=== PATIENT | male | born 1955 | race Caucasian/White ===

== ENCOUNTER 2018-03-20 12:50 | Outpatient (CLI) | payer OTHER ==
[~2018-03-20 12:50] MED LIST: ASPI-611 PO; MULT-342 PO
== END 2018-03-20 23:59 | disposition home or self-care (01) ==
LOC: RAD 12:50
PROVIDERS: ATTEND Family Medicine
DX: M25.474 Effusion, right foot (principal); Z87.891 Personal history of nicotine dependence
CPT/HCPCS: 73660

== ENCOUNTER → 2018-04-13 | Outpatient (CLI) | payer OTHER ==
[2018-04-13 07:58] LABS: CLARITY,URINE CLEAR (Clear); COLOR,URINE YELLOW (Yellow); GLUCOSE, URINE NEGATIVE (Neg); KETONES,URINE NEGATIVE (Neg); LEUKOCYTE ESTERASE ,URINE NEGATIVE (Neg); NITRITES, URINE NEGATIVE (Neg); OCCULT BLOOD,URINE NEGATIVE (Neg); PH,URINE 6.5 (4.8-8.0); PROTEIN,URINE NEGATIVE (Neg); UROBILINOGEN,URINE 0.2 E.U/dL (0.2-1.0)
[2018-04-13 08:07] LABS: BASOPHILS % (AUTO) 0.6 % (0-1); EOSINOPHILS # (AUTO) 0.2 X10'3 (0-0.9); EOSINOPHILS % (AUTO) 3.7 % (0-6); HEMATOCRIT 44.2 % (42.0-52.0); HEMOGLOBIN 15.3 g/dl (14.0-17.9); LYMPHOCYTES # (AUTO) 1.3 X10'3 (1.1-4.8); LYMPHOCYTES % (AUTO) 27.5 % (21-51); MEAN CORPUSCULAR HEMOGLOBIN 32.2 PG (27.0-31.0); MEAN CORPUSCULAR HGB CONC 34.6 % (33.0-36.5); MEAN PLATELET VOLUME 7.2 FL (7.4-10.4); MONOCYTES # (AUTO) 0.5 X10'3 (0-0.9); MONOCYTES % (AUTO) 10.5 % (2-12); NEUTROPHILS # (AUTO) 2.7 X10'3 (1.8-7.7); NEUTROPHILS % (AUTO) 57.7 % (42-75); PLATELET COUNT 180 X10'3 (140-440); RED BLOOD COUNT 4.75 X10'6 (4.70-6.10); RED CELL DISTRIBUTION WIDTH 12.7 % (11.5-14.5); WHITE BLOOD COUNT 4.8 X10'3 (4.5-11.0)
[2018-04-13 08:11] LABS: UA COLLECTION TYPE VOIDED
[2018-04-13 08:19] LABS: ALANINE AMINOTRANSFERASE 32 U/L (12-78); ALBUMIN 4.2 G/DL (3.4-5.0); ALBUMIN/GLOBULIN RATIO 1.4 (1.1-1.5); ALKALINE PHOSPHATASE 58 IU/L (46-116); ANION GAP 6 (8-16); ASPARTATE AMINO TRANSFERASE 29 U/L (10-37); BILIRUBIN,TOTAL 0.5 MG/DL (0.1-1.0); BLOOD UREA NITROGEN 17 MG/DL (7-18); BUN/CREATININE RATIO 20.7 (5.4-32.0); CALCIUM 8.8 MG/DL (8.5-10.1); CHLORIDE 105 MMOL/L (99-107); CHOLESTEROL 158 MG/DL (0-200); CREATININE 0.82 MG/DL (0.60-1.10); GLUCOSE 113 MG/DL (70-104); HDL CHOLESTEROL 52 MG/DL (35-60); LDL CHOLESTEROL 97 MG/DL (50-100); POTASSIUM 4.5 MMOL/L (3.5-5.1); SODIUM 142 MMOL/L (135-145); TOTAL CARBON DIOXIDE 30.8 MMOL/L (24-32); TOTAL PROTEIN 7.3 G/DL (6.4-8.2); TRIGLYCERIDES 66 MG/DL (20-135); eGFR > 90 ML/MIN
== END | disposition home or self-care (01) ==
LOC: LAB 07:32
PROVIDERS: ATTEND Family Medicine
DX: Z00.01 Encounter for general adult medical examination with abnormal findings (principal); Z87.891 Personal history of nicotine dependence
CPT/HCPCS: 36415; 80053; 80061; 81003; 84402; 84403; 84439; 84443; 85025

== ENCOUNTER 2018-07-18 10:45 | Outpatient (CLI) | payer OTHER | END 2018-07-18 23:59 | disposition home or self-care (01) | LOC: RAD 10:45 | PROVIDERS: ATTEND Podiatrist Foot & Ankle Surgery | DX: M25.474 Effusion, right foot (principal); M79.671 Pain in right foot; Z87.891 Personal history of nicotine dependence | CPT/HCPCS: 73718 ==

== ENCOUNTER 2018-12-20 15:31 | Emergency (ER) | payer OTHER, MEDICARE ==
[~2018-12-20] VITALS: Ht 180.3 cm; Wt 106.4 kg
[2018-12-20 15:51] VITALS: BP 155/92
[2018-12-20] MEDS ORDERED: LIDOcaine 1% w/epiNEPHrine 1:200,000 30ml vial IM ONE (16:15)
--- NOTE | 2018-12-20 16:56 | NUR ---
PT SEEN AND DC'D BY PROVIDER
== END 2018-12-20 16:57 | disposition home or self-care (01) ==
LOC: ER 15:32
DX: S01.511A Laceration without foreign body of lip, initial encounter (principal); W22.8XXA Striking against or struck by other objects, initial encounter; Y93.89 Activity, other specified; Y92.89 Other specified places as the place of occurrence of the external cause; Y99.8 Other external cause status
CPT/HCPCS: 12011; 96372; 99283

== ENCOUNTER 2019-04-18 08:27 | Outpatient (CLI) | payer OTHER, MEDICARE ==
[2019-04-18 09:26] LABS: BASOPHILS % (AUTO) 0.9 % (0-1); EOSINOPHILS # (AUTO) 0.1 X10'3 (0-0.9); HEMATOCRIT 42.7 % (42.0-52.0); HEMOGLOBIN 14.7 g/dl (14.0-17.9); LYMPHOCYTES # (AUTO) 1.4 X10'3 (1.1-4.8); LYMPHOCYTES % (AUTO) 34.2 % (21-51); MEAN CORPUSCULAR HEMOGLOBIN 31.8 PG (27.0-31.0); MEAN CORPUSCULAR HGB CONC 34.4 g/dL (33.0-36.5); MEAN CORPUSCULAR VOLUME 92.5 FL (78-98); MEAN PLATELET VOLUME 7.4 FL (7.4-10.4); MONOCYTES # (AUTO) 0.5 X10'3 (0-0.9); MONOCYTES % (AUTO) 11.2 % (2-12); NEUTROPHILS # (AUTO) 2.1 X10'3 (1.8-7.7); NEUTROPHILS % (AUTO) 51.7 % (42-75); PLATELET COUNT 175 X10'3 (140-440); RED BLOOD COUNT 4.62 X10'6 (4.70-6.10); RED CELL DISTRIBUTION WIDTH 12.5 % (11.5-14.5)
[2019-04-18 09:29] LABS: HEMOGLOBIN A1C 5.4 % (4.5-6.2)
[2019-04-18 09:47] LABS: ALANINE AMINOTRANSFERASE 29 U/L (12-78); ALBUMIN 4.1 G/DL (3.4-5.0); ALBUMIN/GLOBULIN RATIO 1.4 (1.1-1.5); ALKALINE PHOSPHATASE 47 IU/L (46-116); ANION GAP 7 (8-16); ASPARTATE AMINO TRANSFERASE 21 U/L (10-37); BILIRUBIN,TOTAL 0.8 MG/DL (0.1-1.0); BLOOD UREA NITROGEN 20 MG/DL (7-18); BUN/CREATININE RATIO 27.4 (5.4-32.0); CHLORIDE 105 MMOL/L (99-107); CHOL/HDL RATIO 3.7 (0.00-4.99); CHOLESTEROL 151 MG/DL (0-200); CREATININE 0.73 MG/DL (0.60-1.10); GLUCOSE 100 MG/DL (70-104); HDL CHOLESTEROL 41 MG/DL (35-60); LDL CHOLESTEROL 103 MG/DL (50-100); SODIUM 137 MMOL/L (135-145); TOTAL CARBON DIOXIDE 24.7 MMOL/L (24-32); TOTAL PROTEIN 7.1 G/DL (6.4-8.2); TRIGLYCERIDES 66 MG/DL (20-135); eGFR > 90 ML/MIN
[2019-04-19 09:29] LABS: MICROALB/CRT, RATIO 4.5 mg/g creat (0.0-30.0)
[2019-04-19 13:19] LABS: PSA, ULTRASENSITIVE W/O SERIAL 0.713 ng/mL (0.000-4.000)
== END 2019-04-18 23:59 | disposition home or self-care (01) ==
LOC: LAB 08:27
DX: Z00.00 Encounter for general adult medical examination without abnormal findings (principal); Z87.891 Personal history of nicotine dependence
CPT/HCPCS: 36415; 80053; 80061; 82043; 82570; 83036; 84153; 84439; 84443; 85025

== ENCOUNTER 2020-12-24 07:58 | Outpatient (CLI) | payer BC, MEDICARE ==
[2020-12-24 09:26] LABS: BASOPHILS % (AUTO) 0.9 % (0-1); EOSINOPHILS # (AUTO) 0.2 X10'3 (0-0.9); HEMATOCRIT 43.8 % (42.0-52.0); HEMOGLOBIN 15.1 g/dl (14.0-17.9); LYMPHOCYTES # (AUTO) 1.2 X10'3 (1.1-4.8); LYMPHOCYTES % (AUTO) 23.6 % (21-51); MEAN CORPUSCULAR HEMOGLOBIN 32.4 PG (27.0-31.0); MEAN CORPUSCULAR HGB CONC 34.5 g/dL (33.0-36.5); MEAN CORPUSCULAR VOLUME 93.9 FL (78-98); MEAN PLATELET VOLUME 7.6 FL (7.4-10.4); MONOCYTES # (AUTO) 0.5 X10'3 (0-0.9); MONOCYTES % (AUTO) 10.5 % (2-12); NEUTROPHILS # (AUTO) 3.2 X10'3 (1.8-7.7); PLATELET COUNT 179 X10'3 (140-440); RED BLOOD COUNT 4.67 X10'6 (4.70-6.10); RED CELL DISTRIBUTION WIDTH 13.2 % (11.5-14.5); WHITE BLOOD COUNT 5.2 X10'3 (4.5-11.0)
[2020-12-24 09:29] LABS: CLARITY,URINE CLEAR (Clear); COLOR,URINE YELLOW (Yellow); GLUCOSE, URINE NEGATIVE (Neg); KETONES,URINE NEGATIVE (Neg); LEUKOCYTE ESTERASE ,URINE NEGATIVE (Neg); NITRITES, URINE NEGATIVE (Neg); OCCULT BLOOD,URINE NEGATIVE (Neg); PROTEIN,URINE NEGATIVE (Neg); UROBILINOGEN,URINE 0.2 E.U/dL (0.2-1.0)
[2020-12-24 09:36] LABS: UA COLLECTION TYPE CLN CATCH MIDSTREAM
[2020-12-24 09:39] LABS: ALANINE AMINOTRANSFERASE 46 U/L (12-78); ALBUMIN 4.1 G/DL (3.4-5.0); ALBUMIN/GLOBULIN RATIO 1.4 (1.1-1.5); ALKALINE PHOSPHATASE 65 IU/L (46-116); ANION GAP 12 (8-16); ASPARTATE AMINO TRANSFERASE 34 U/L (10-37); BILIRUBIN,TOTAL 0.3 MG/DL (0.1-1.0); BLOOD UREA NITROGEN 17 MG/DL (7-18); BUN/CREATININE RATIO 23.9 (5.4-32.0); CALCIUM 8.9 MG/DL (8.5-10.1); CHLORIDE 107 MMOL/L (99-107); CHOL/HDL RATIO 3.6 (0.00-4.99); CHOLESTEROL 167 MG/DL (0-200); CREATININE 0.71 MG/DL (0.60-1.10); GLUCOSE 110 MG/DL (70-104); HDL CHOLESTEROL 46 MG/DL (35-60); LDL CHOLESTEROL 106 MG/DL (50-100); POTASSIUM 4.2 MMOL/L (3.5-5.1); SODIUM 145 MMOL/L (135-145); TOTAL CARBON DIOXIDE 26.1 MMOL/L (24-32); TOTAL PROTEIN 7.1 G/DL (6.4-8.2); TRIGLYCERIDES 74 MG/DL (20-135); eGFR > 90 ML/MIN
[2020-12-24 09:51] LABS: HEMOGLOBIN A1C 5.8 % (4.5-6.2)
== END 2020-12-24 23:59 | disposition home or self-care (01) ==
LOC: 64 CT 07:58
PROVIDERS: ATTEND Family Medicine
DX: I25.10 Atherosclerotic heart disease of native coronary artery without angina pectoris (principal); J43.9 Emphysema, unspecified; R91.1 Solitary pulmonary nodule; Z00.00 Encounter for general adult medical examination without abnormal findings; Z87.891 Personal history of nicotine dependence
CPT/HCPCS: 36415; 71250; 80053; 80061; 81003; 83036; 84153; 85025

== ENCOUNTER 2021-03-04 08:22 | Day surgery (SDC) | payer BC, MEDICARE ==
[~2021-03-04] VITALS: Ht 180.3 cm; Wt 101.8 kg
[2021-03-04 08:35] VITALS: BP 174/98
[2021-03-04] MEDS ORDERED: MIDAZolam 1 MG/ML 5ML VIAL ONE (09:01)
[2021-03-04] MEDS ORDERED: fentaNYL/PF 50MCG/1 ML 2ML syringe ONE (09:01)
[2021-03-04 10:06] VITALS: BP 147/70
[2021-03-04 10:16] VITALS: BP 143/76
[2021-03-04 10:26] VITALS: BP 143/89
== END 2021-03-04 10:37 | disposition home or self-care (01) ==
LOC: GI LAB 08:22
PROVIDERS: ATTEND Internal Medicine Gastroenterology
DX: Z12.11 Encounter for screening for malignant neoplasm of colon (principal); K62.1 Rectal polyp; K57.30 Diverticulosis of large intestine without perforation or abscess without bleeding; K64.0 First degree hemorrhoids; Z87.891 Personal history of nicotine dependence; Z79.899 Other long term (current) drug therapy; Z80.0 Family history of malignant neoplasm of digestive organs
CPT/HCPCS: 45380; 99152; J2250; J3010; J7040; 45385; 99153; A4620

== ENCOUNTER 2021-04-03 12:27 | Outpatient (CLI) | payer BC, MEDICARE ==
[~2021-04-03 12:27] MED LIST changes: -ASPI-611 PO
== END 2021-04-03 23:59 | disposition home or self-care (01) ==
LOC: CARD DIAG 12:27
PROVIDERS: ATTEND Internal Medicine Interventional Cardiology
DX: R06.02 Shortness of breath (principal)
CPT/HCPCS: 93306

== ENCOUNTER 2021-04-06 08:21 | Outpatient (CLI) | payer BC, MEDICARE ==
[2021-04-03 14:12] LABS: ALANINE AMINOTRANSFERASE 35 U/L (12-78); ALBUMIN 4.2 G/DL (3.4-5.0); ALBUMIN/GLOBULIN RATIO 1.5 (1.1-1.5); ALKALINE PHOSPHATASE 53 IU/L (46-116); ANION GAP 9 (8-16); ASPARTATE AMINO TRANSFERASE 24 U/L (10-37); BILIRUBIN,TOTAL 0.6 MG/DL (0.1-1.0); BLOOD UREA NITROGEN 19 MG/DL (7-18); BUN/CREATININE RATIO 25.3 (5.4-32.0); CHLORIDE 106 MMOL/L (99-107); CREATININE 0.75 MG/DL (0.60-1.10); GLUCOSE 89 MG/DL (70-104); POTASSIUM 3.7 MMOL/L (3.5-5.1); SODIUM 142 MMOL/L (135-145); TOTAL CARBON DIOXIDE 27.4 MMOL/L (24-32); eGFR > 90 ML/MIN
[2021-04-06] MEDS ORDERED: iohexol 300mg/ml 100ml inj. ONE (08:45)
== END 2021-04-06 23:59 | disposition home or self-care (01) ==
LOC: 64 CT 08:21
PROVIDERS: ATTEND Family Medicine
DX: K42.9 Umbilical hernia without obstruction or gangrene (principal); N20.0 Calculus of kidney; K76.89 Other specified diseases of liver; I70.0 Atherosclerosis of aorta; N28.1 Cyst of kidney, acquired
CPT/HCPCS: 36415; 74170; 80053; Q9967

== ENCOUNTER 2021-04-28 09:21 | Outpatient (CLI) | payer BC, MEDICARE ==
[2021-04-28 10:26] LABS: BASOPHILS % (AUTO) 0.6 % (0-1); EOSINOPHILS # (AUTO) 0.1 X10'3 (0-0.9); EOSINOPHILS % (AUTO) 1.9 % (0-6); HEMATOCRIT 43.9 % (42.0-52.0); HEMOGLOBIN 15.2 g/dl (14.0-17.9); LYMPHOCYTES # (AUTO) 1.3 X10'3 (1.1-4.8); LYMPHOCYTES % (AUTO) 20.1 % (21-51); MEAN CORPUSCULAR HEMOGLOBIN 32.1 PG (27.0-31.0); MEAN CORPUSCULAR HGB CONC 34.7 g/dL (33.0-36.5); MEAN CORPUSCULAR VOLUME 92.5 FL (78-98); MEAN PLATELET VOLUME 7.2 FL (7.4-10.4); MONOCYTES # (AUTO) 0.6 X10'3 (0-0.9); MONOCYTES % (AUTO) 8.6 % (2-12); NEUTROPHILS # (AUTO) 4.6 X10'3 (1.8-7.7); NEUTROPHILS % (AUTO) 68.8 % (42-75); PLATELET COUNT 194 X10'3 (140-440); RED BLOOD COUNT 4.75 X10'6 (4.70-6.10); WHITE BLOOD COUNT 6.7 X10'3 (4.5-11.0)
[2021-04-28 10:42] LABS: CLARITY,URINE SLIGHTLY CLOUDY (Clear); COLOR,URINE YELLOW (Yellow); GLUCOSE, URINE NEGATIVE (Neg); KETONES,URINE NEGATIVE (Neg); LEUKOCYTE ESTERASE ,URINE NEGATIVE (Neg); NITRITES, URINE NEGATIVE (Neg); OCCULT BLOOD,URINE NEGATIVE (Neg); PROTEIN,URINE NEGATIVE (Neg); UA COLLECTION TYPE VOIDED; UROBILINOGEN,URINE 0.2 E.U/dL (0.2-1.0)
[2021-04-28 10:42] LABS: ALANINE AMINOTRANSFERASE 31 U/L (12-78); ALBUMIN 4.1 G/DL (3.4-5.0); ALBUMIN/GLOBULIN RATIO 1.3 (1.1-1.5); ALKALINE PHOSPHATASE 53 IU/L (46-116); ANION GAP 8 (8-16); ASPARTATE AMINO TRANSFERASE 22 U/L (10-37); BILIRUBIN,TOTAL 0.7 MG/DL (0.1-1.0); BLOOD UREA NITROGEN 16 MG/DL (7-18); BUN/CREATININE RATIO 21.3 (5.4-32.0); CALCIUM 8.6 MG/DL (8.5-10.1); CHLORIDE 105 MMOL/L (99-107); CHOL/HDL RATIO 3.6 (0.00-4.99); CHOLESTEROL 172 MG/DL (0-200); CREATININE 0.75 MG/DL (0.60-1.10); GLUCOSE 103 MG/DL (70-104); HDL CHOLESTEROL 48 MG/DL (35-60); LDL CHOLESTEROL 109 MG/DL (50-100); POTASSIUM 3.9 MMOL/L (3.5-5.1); SODIUM 143 MMOL/L (135-145); TOTAL PROTEIN 7.2 G/DL (6.4-8.2); TRIGLYCERIDES 78 MG/DL (20-135); eGFR > 90 ML/MIN
[2021-04-28 10:52] LABS: BACTERIA,URINE 1+ /HPF (Neg); MUCUS STRANDS MODERATE /LPF (Neg); RBC,URINE 0-2 /HPF (0-2); SQUAMOUS EPITHELIAL CELL,UR FEW /LPF (FEW); WBC,URINE 0-4 /HPF (0-4)
== END 2021-04-28 23:59 | disposition home or self-care (01) ==
LOC: LAB 09:21
DX: Z00.00 Encounter for general adult medical examination without abnormal findings (principal)
CPT/HCPCS: 36415; 80053; 80061; 81001; 83036; 84153; 85025